=== PATIENT | female | born 1965 | race Asian ===

== ENCOUNTER 2023-07-17 08:11 | Outpatient (CLI) | payer BC, SELFPAY ==
--- NOTE | 2023-07-17 08:15 | CRLHL7_ITS ---
For Patients: As a result of the Century Cures Act, medical imaging exams and procedure reports are released immediately into your electronic medical record. You may view this report before your referring provider. If you have questions, please contact your health care provider. INDICATION: Postmenopausal bleeding. TECHNIQUE: Transabdominal and transvaginal scanning was performed. Transvaginal scanning was performed to optimally evaluate the endometrium and adnexa. Ovarian blood flow was evaluated with color-flow and pulsed Doppler. COMPARISON: None. FINDINGS: The postmenopausal uterus is normal in size. The uterus measures 8.8 x 4.9 x 4.8 cm. Three discrete uterine fibroids are demonstrated. All of these appear to be intramural. A 2.9 x 2.8 x 1.9 cm fibroid is demonstrated in the posterior left uterine fundus. A 3.1 x 2.8 x 2.7 cm fibroid is demonstrated the right anterior fundus and a 2.6 x 2.5 x 1.9 cm fibroid is demonstrated in the left posterior lower uterine segment. The endometrial stripe is borderline thickened at 5 mm. The ovaries are normal in size. The right ovary measures 1.7 x 1.1 x 1.0 cm and left 2.0 x 1.6 x 0.9 cm. Ovarian blood flow is demonstrated with color-flow and pulsed Doppler. No adnexal mass is evident. No free fluid is demonstrated. IMPRESSION: 1. Borderline thickened postmenopausal endometrial stripe at 5 mm. 2. Three discrete intramural uterine fibroids, as above. Dictated by Glenroy Tan MD @ 07/18/2023 2:49:22 PM (Electronically Signed)
== END 2023-07-17 08:12 | disposition home or self-care (01) ==
LOC: US 08:11
PROVIDERS: PCP Family Medicine; Visit Provider Obstetrics & Gynecology
DX: N95.0 Postmenopausal bleeding (principal); D25.1 Intramural leiomyoma of uterus
CPT/HCPCS: 76830; 76856; 80061